=== PATIENT | male | born 2000 | race African-American/Black ===

== ENCOUNTER 2023-09-28 00:41 | Emergency (ER) | payer BC, OTHER ==
--- NOTE | 2023-09-28 01:15 | ED ---
General Adult HPI - General Source: patient, family, police, EMS, RN notes reviewed, old records reviewed Mode of arrival: EMS <Doc Cervantes - Last Filed: 09/28/23 07:22> <Ed Young - Last Filed: 09/28/23 15:20> - General Chief complaint: Psychiatric Symptoms Stated complaint: PETITION Time Seen by Provider: 09/28/23 00:44 - History of Present Illness Initial comments: Patient is a 23-year-old male presents emergency Department complaining of agitation. Was brought in by police and petitioned by his mother. Patient apparently is supposed be on medications for ADHD and depression but unknown if he is taking them properly. Patient's mother is concerned regarding this. Has made threatening actions towards family. He denies any suicidal or homicidal ideations, attempts, plans. Denies any visual or auditory hallucinations. Has no other acute complaints at this time. Presents for further evaluation. Denies chest pain or shortness of breath. States he may have injured his right small finger. (Doc Cervantes) - Related Data Allergies Allergy/AdvReac Type Severity Reaction Status Date / Time No Known Allergies Allergy Verified 09/28/23 00:56 Review of Systems ROS Other: All systems not noted in ROS Statement are negative. <Doc Cervantes - Last Filed: 09/28/23 07:22> ROS Other: All systems not noted in ROS Statement are negative. <Ed Young - Last Filed: 09/28/23 15:20> ROS Statement: Those systems with pertinent positive or pertinent negative responses have been documented in the HPI. Review of Systems: CONST: Denies fever EYES: Denies blurry vision ENT: Denies nasal congestion C/V: Denies Chest pain RESP: Denies shortness of breath GI: Denies abdominal pain : Denies dysuria SKIN: Denies rash. MSK: Endorses right fifth digit pain. NEURO: Denies headache (Doc Cervantes) General Exam <Doc Cervantes - Last Filed: 09/28/23 07:22> - General Exam Comments Initial Comments: General: Appears in no acute distress. HEAD: Normal with no signs of head trauma. EYES: PERRLA, EOMI, conjunctiva normal, no discharge. ENT: Hearing grossly intact, normal oropharynx. RESPIRATORY: Clear breath sounds bilaterally. No wheezes, rales, or rhonchi. C/V: Regular rate and rhythm. S1 and S2 auscultated, no edema, peripheral pulses 2+ and intact throughout ABD: Abd is soft, nontender, nondistended EXT: Decreased range of motion at the right fifth digit. Mild sinus palpation over the proximal interphalangeal joint. SKIN: No rashes or lesions observed on exposed skin. NEURO: Alert and oriented x 4. (Doc Cervantes) Course Vital Signs 09/28/23 09/28/23 00:52 13:35 Temperature 98.1 F 97.6 F Pulse Rate 96 77 Respiratory 18 17 Rate Blood Pressure 138/86 130/84 O2 Sat by Pulse 97 100 Oximetry Procedures - Orthopedic Joint Reduction Joint #1 Consent Obtained: verbal consent Side: right Joint Reduction Location: finger Analgesia: none Technique Used: traction/counter-traction Post-Reduction Neuro Exam: intact Post-Reduction Vascular Exam: intact Patient Tolerated Procedure: well <Doc Cervantes - Last Filed: 09/28/23 07:22> Medical Decision Making <Doc Cervantes - Last Filed: 09/28/23 07:22> <Ed Young - Last Filed: 09/28/23 15:20> - Medical Decision Making Was pt. sent in by a medical professional or institution (TIMOTHY Feliciano, DIRECTOR OF PSYCHIATRY, urgent care, hospital, or fpc...) When possible be specific @ -No Did you speak to anyone other than the patient for history (EMS, parent, family, police, friend...)? What history was obtained from this source @ -No Did you review nursing and triage notes (agree or disagree)? Why? @ -I reviewed and agree with nursing and triage notes Were old charts reviewed (outside hosp., previous admission, EMS record, old EKG, old radiological studies, urgent care reports/EKG's, fpc records)? Report findings @ -No old charts were reviewed Differential Diagnosis (chest pain, altered mental status, abdominal pain women, abdominal pain men, vaginal bleeding, weakness, fever, dyspnea, syncope, headache, dizziness, GI bleed, back pain, seizure, CVA, palpatations, mental health, musculoskeletal)? @ -Differential Mental Health Depression, anxiety, bipolar, psychosis, schizophrenia, borderline personality, situational depression, adjustment disorder, behavioral disorder, brain tumor, malingering, substance abuse, encephalopathy, medication reaction, dementia, hypothyroidism, degenerative neurologic disorder, lupus.... This is not meant to be all-inclusive list EKG interpreted by me (3pts min.). @ -None done X-rays interpreted by me (1pt min.). @ -Suspicion for dislocation of the right fifth digit at the PIP joint. CT interpreted by me (1pt min.). @ -None done U/S interpreted by me (1pt. min.). @ -None done What testing was considered but not performed or refused? (CT, X-rays, U/S, labs)? Why? @ -None What meds were considered but not given or refused? Why? @ -None Did you discuss the management of the patient with other professionals (professionals i.e. , PA, DIRECTOR OF PSYCHIATRY, lab, RT, psych nurse, manager social responsibility, recreation therapist, teacher, risk officer, caser up)? Give summary @ -EPS notified of the consult. Was smoking cessation discussed for >3mins.? @ -No Was critical care preformed (if so, how long)? @ -No Were there social determinants of health that impacted care today? How? (Homelessness, low income, unemployed, alcoholism, drug addiction, transportation, low edu. Level, literacy, decrease access to med. care, alf, rehab)? @ -No Was there de-escalation of care discussed even if they declined (Discuss DNR or withdrawal of care, Hospice)? DNR status @ -No What co-morbidities impacted this encounter? (DM, HTN, Smoking, COPD, CAD, Cancer, CVA, ARF, Chemo, Hep., AIDS, mental health diagnosis, sleep apnea, morbid obesity)? @ -None Was patient admitted / discharged? Hospital course, mention meds given and route, prescriptions, significant lab abnormalities, going to OR and other pertinent info. @ -Based on the patient's presentation and physical exam, presents for psychiatric evaluation. Is being petitioned by his mother. He was placed in green scrubs. Sitter ordered. He is cooperative at this time. We'll obtain an x-ray of the right hand evaluate for any injury to the fifth digit. BAT is 0. UDS is pending. I did offer analgesic medications which were declined. Vital signs within except for limits. Patient's finger appears dislocated on x-ray. I successfully reduced the patient's right fifth digit dislocation. Pain resolved. Full range of motion intact. Neurovascular intact. offered splinting and analgesia medications which were declined. At this time, patient is medically cleared for evaluation by psychiatry. Disposition is pending psychiatric evaluation. Undiagnosed new problem with uncertain prognosis? @ -No Drug Therapy requiring intensive monitoring for toxicity (Heparin, Nitro, Insulin, Cardizem)? @ -No Were any procedures done? @ -No Diagnosis/symptom? @ -Dislocation right fifth PIP joint status post reduction Acute, or Chronic, or Acute on Chronic? @ -Acute Uncomplicated (without systemic symptoms) or Complicated (systemic symptoms)? @ -Uncomplicated Side effects of treatment? @ -none Exacerbation, Progression, or Severe Exacerbation] @ -no Poses a threat to life or bodily function? @ -no (Doc Cervantes) Was patient admitted / discharged? Hospital course, mention meds given and route, prescriptions, significant lab abnormalities, going to OR and other pertinent info. @ -Is evaluated the patient and determined the patient could go home the patient was given a safety plan in agreement with Undiagnosed new problem with uncertain prognosis? @ -No Drug Therapy requiring intensive monitoring for toxicity (Heparin, Nitro, Insulin, Cardizem)? @ -No Were any procedures done? @ -No Diagnosis/symptom? @ -Agitation Acute, or Chronic, or Acute on Chronic? @ -Chronic Uncomplicated (without systemic symptoms) or Complicated (systemic symptoms)? @ -Complicated Side effects of treatment? @ -No Exacerbation, Progression, or Severe Exacerbation? @ -No Poses a threat to life or bodily function? How? (Chest pain, [place], [place], pneumonia, PE, COPD, DKA, ARF, appy, cholecystitis, CVA, Diverticulitis, Homicidal, Suicidal, threat to staff... and all critical care pts) @ -No (Ed Young) Disposition <Doc Cervantes - Last Filed: 09/28/23 07:22> Is patient prescribed a controlled substance at d/c from ED?: No Time of Disposition: 15:13 <Ed Young - Last Filed: 09/28/23 15:20> Clinical Impression: Finger dislocation, Agitation Disposition: HOME SELF-CARE Referrals: Freda Ambriz, [Primary Care Provider] - 1-2 days
--- NOTE | 2023-09-28 07:17 | XR ---
EXAMINATION TYPE: XR hand limited RT DATE OF EXAM: 09/28/2023 1:31 AM CLINICAL INDICATION:Male, 23 years old with history of pain 5th digit; H COMPARISON: None TECHNIQUE: 2 views right hand, limited study FINDINGS: Osseous mineralization appears appropriate. No destructive bony lesion. There is dislocation at the f ifth digit proximal interphalangeal joint with the base of the middle phalanx displaced medially and anteriorly and the distal digit is directed medially and anteriorly. No fractures are apparent. Joint spaces are maintained. Some soft tissue swelling in the fifth digit, otherwise unremarkable. IMPRESSION: Dislocation at the fifth digit proximal interphalangeal joint
[2023-09-28 15:28] VITALS: BP 133/90; PULSE 90; RESP 18; TEMP 97.7
== END 2023-09-28 15:22 | disposition home or self-care (01) ==
LOC: EC 00:41
DX: S63.256A Unspecified dislocation of right little finger, initial encounter (principal); R45.1 Restlessness and agitation; Z86.59 Personal history of other mental and behavioral disorders; X58.XXXA Exposure to other specified factors, initial encounter
CPT/HCPCS: 26770; 82075; 99285